=== PATIENT | female | born 1950 | race Caucasian/White ===

== ENCOUNTER → 2016-12-01 | Outpatient (CLI) | payer OTHER ==
[2016-12-01 11:29] LABS: BASO % 0.3 %; BASO ABS # 0.02 K/uL (0-0.2); COMPLETE YES; EOS % 1.4 %; HEMATOCRIT 43.8 % (37-47); IG% 0.4 %; LYMPH % 19.6 %; LYMPH ABS # 1.36 K/uL (1.2-3.4); MEAN CELL VOLUME 89.4 fL (80-100); MEAN CORPUSCULAR HGB CONC 34.7 g/dl (32-36); MEAN PLATELET VOLUME 9.4 fL (7.4-10.4); MONO % 6.9 %; NEUT % 71.4 %; PLATELET COUNT 346 K/uL (130-400); WHITE BLOOD COUNT 6.94 K/uL (4.8-10.8)
[2016-12-01 11:40] LABS: PHOSPHORUS 2.9 mg/dl (2.5-4.9)
[2016-12-06 04:18] LABS: ALBUMIN 4.3 G/DL (3.8-4.8); CREATININE UR 27 MG/DL (20-320); GAMMA GLOBULIN 0.9 G/DL (0.8-1.7); PARATHYR RELATED PROT *34478X 13 pg/mL (14-27); TOTAL PROTEIN 6.9 G/DL (6.2-8.3)
== END | disposition home or self-care (01) ==
LOC: C.LAB1850 10:07
PROVIDERS: ATTEND Internal Medicine Endocrinology, Diabetes & Metabolism
DX: R79.89 Other specified abnormal findings of blood chemistry (principal)

== ENCOUNTER → 2016-12-03 | Outpatient (CLI) | payer OTHER ==
--- NOTE | 2016-12-03 13:05 | DIAGNOSTIC IMAGING REPORT ---
RIGHT SUPRACLAVICULAR SOFT TISSUE ULTRASOUND CLINICAL HISTORY: Supraclavicular fullness. COMPARISON STUDY: No previous studies for comparison. FINDINGS: Ultrasonographic evaluation of the area of clinical concern was performed. No pathologic ultrasonographic masses are visualized. IMPRESSION: No pathologic ultrasonic masses are visualized in the right supra clavicular region Electronically signed by: Kaiden Tracey M.D. 12/03/2016 1:03 PM Dictated Date/Time: 12/03/2016 1:02 PM
== END | disposition home or self-care (01) ==
LOC: C.ULTR 12:34
PROVIDERS: ATTEND Internal Medicine Endocrinology, Diabetes & Metabolism
DX: R22.1 Localized swelling, mass and lump, neck (principal)

== ENCOUNTER → 2017-02-05 | Outpatient (CLI) | payer OTHER ==
--- NOTE | 2017-02-06 15:06 | MAMMOGRAPHY REPORT ---
BILATERAL DIGITAL SCREENING MAMMOGRAM TOMOSYNTHESIS WITH CAD: 02/05/2017 CLINICAL HISTORY: Routine screening. Patient has no complaints. TECHNIQUE: Breast tomosynthesis in addition to standard 2D mammography was performed. Current study was also evaluated with a Computer Aided Detection (CAD) system. COMPARISON: Comparison is made to exams dated: 12/31/2015 mammogram, 06/15/2015 mammogram, 06/12/2014 m ammogram, 06/09/2013 mammogram, 06/08/2012 mammogram, and 03/17/2011 mammogram - [facility]. BREAST COMPOSITION: The tissue of both breasts is heterogeneously dense, which may obscure small ma sses. FINDINGS: No suspicious masses, calcifications, or areas of architectural distortion are noted in e ither breast. There has been no significant interval change compared to prior exams. Nodular 6 mm a symmetry seen within the right medial breast middle depth on the cc view is similar in appearance to prior exams including the 2008 exam, and considered benign given long-term stability and felt to re present normal fibroglandular tissue. Scattered bilateral benign-appearing calcifications are again noted. IMPRESSION: ACR BI-RADS CATEGORY 2: BENIGN There is no mammographic evidence of malignancy. A 1 year screening mammogram is recommended. The p atient will receive written notification of the results. Approximately 10% of breast cancers are not detected with mammography. A negative mammographic repor t should not delay biopsy if a clinically suggestive mass is present. Kelly Angulo M.D. ah/:02/05/2017 16:24:57 Printing Specialist: Stacy SEQUEIRA(R)(M), [facility] letter sent: Normal 1/2 BI-RADS Code: ACR BI-RADS Category 2: Benign
== END | disposition home or self-care (01) ==
LOC: C.MAMM 15:16
PROVIDERS: ATTEND Obstetrics & Gynecology
DX: Z12.31 Encounter for screening mammogram for malignant neoplasm of breast (principal)

== ENCOUNTER → 2017-04-09 | Outpatient (CLI) | payer OTHER ==
[2017-04-09 12:28] LABS: CALCIUM 9.4 mg/dl (8.5-10.1)
[2017-04-09 12:37] LABS: FERRITIN 169.2 ng/ml (8.0-388.0)
== END | disposition home or self-care (01) ==
LOC: C.LAB1850 10:03
PROVIDERS: ATTEND Internal Medicine Endocrinology, Diabetes & Metabolism
DX: E03.9 Hypothyroidism, unspecified (principal); R79.89 Other specified abnormal findings of blood chemistry

== ENCOUNTER → 2017-10-14 | Outpatient (CLI) | payer OTHER | END | disposition home or self-care (01) | LOC: C.PAPS 14:02 | PROVIDERS: ATTEND Obstetrics & Gynecology | DX: Z01.419 Encounter for gynecological examination (general) (routine) without abnormal findings (principal) ==